=== PATIENT | male | born 1935 | race Caucasian/White ===

== ENCOUNTER 2019-01-23 00:59 | Emergency (ER) | payer OTHER ==
[~2019-01-23 00:59] MED LIST: COUMADIN 5 MG TA5 M1 PO; DIOVAN HCT 80-1 EACH PO; FISH OIL 1,0001 EAC5 PO; FUROSEMIDE 40 M40 MG PO; VITAMIN D1000 UNI1 PO
--- NOTE | 2019-01-23 07:40 | EKG ---
[facility] [employer] [place] [address] ELECTROCARDIOGRAM REPORT Name: RADHA FLOREZ Gustavo Room #: DEP [facility] [id number] ������������������ Admission: 01/23/19 ������������������ Attend Phys: Discharge: 01/23/19 ������������������ Date of : 33 Report #: [id number] ����������������������������������������������������������������� [id number] THIS REPORT FOR: //name// [facility] ED Test Date: 2019-01-23 Test Time: 01:06:00 Pat Name: RADHA FLOREZ Department: Room: Gender: [employer]: SHAQUILLE : 1935 Requested By: Diony Angeles Order Number: [id number] MD: Jake Meeks Measurements Intervals [place] Rate: 70 P: MT: QRS: 108 QRSD: 115 T: -53 QT: 378 QTc: 408 Interpretive Statements Accelerated junctional rhythm 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 ��������������������������������������������� 01/23/19 0740 D: [id number] 5 Jake Meeks MD, FACC /EPI
== END 2019-01-23 03:47 ==
LOC: ER 00:59
DX: I46.9 Cardiac arrest, cause unspecified (principal); G47.30 Sleep apnea, unspecified; Z85.46 Personal history of malignant neoplasm of prostate; Z88.8 Allergy status to other drugs, medicaments and biological substances